=== PATIENT | male | born 1985 | race Caucasian/White ===

== ENCOUNTER 2017-08-06 14:11 | Emergency (ER) | payer BC ==
[~2017-08-06] VITALS: Ht 195.6 cm; Wt 109.1 kg
[~2017-08-06 14:11] MED LIST: NO HOME MEDICATIONS
[2017-08-06 14:15] VITALS: BP 142/74; PULSE 68; TEMP 97.3
[2017-08-06] MEDS ORDERED: TESSALON P100 MG/CAP PO (14:54)
== END 2017-08-06 15:02 | disposition home or self-care (01) ==
LOC: COL.ER 14:11
DX: J06.9 Acute upper respiratory infection, unspecified (principal); J20.9 Acute bronchitis, unspecified

== ENCOUNTER 2022-04-16 16:22 | Emergency (ER) | payer BC ==
[~2022-04-16] VITALS: Ht 195.6 cm; Wt 95.5 kg
[~2022-04-16 16:22] MED LIST changes: +TESSALON P100 MG/CAP PO
[2022-04-16 16:26] VITALS: TEMP 98.5
[2022-04-16 17:28] VITALS: BP 132/78; PULSE 64
== END 2022-04-16 17:28 | disposition home or self-care (01) ==
LOC: COL.ER 16:22
DX: S61.210A Laceration without foreign body of right index finger without damage to nail, initial encounter (principal); F17.210 Nicotine dependence, cigarettes, uncomplicated; Z28.310 Unvaccinated for COVID-19; Z23 Encounter for immunization; W26.8XXA Contact with other sharp object(s), not elsewhere classified, initial encounter